=== PATIENT | male | born 1975 | race Caucasian/White ===

== ENCOUNTER 2017-06-12 08:25 | Emergency (ER) | payer SELFPAY ==
[2017-06-12 08:40] VITALS: BP 145/88
--- NOTE | 2017-06-12 09:31 | RAD ---
Indication: Back injury. 5 views of the lumbar spine demonstrate vertebral bodies to be normal in height. Disc spaces all well-preserved. Pedicles appear intact. IMPRESSION: No fracture of the lumbar spine is noted.
--- NOTE | 2017-06-12 10:04 | UC ---
Matt Wallis Jason, [facility] on 06/12/17 at 0931 . Back Pain HPI - HPI Summary HPI Summary: In Room: This patient is a 41 year old M presenting to [facility] with a chief complaint of sharp back pain since 3 days ago. The patient states that he slipped on ice at work and is experiencing bilateral lower back pain that has not improved with otc medication. The patient rates the pain 6/10 in severity. Symptoms aggravated by standing and sitting. Symptoms alleviated by lying down. Patient denies BM changes, urinary sx, and leg weakness, nausea, vomiting, and diarrhea. The patient includes that he has only been the hospital overnight during tonsil removal. MD note: VSS, temp 99.0, elevated BP 145/88. pulse ox: 99. 6/10 lumbar pain, non -smoker. Visit history: back injury and lower back pain noted. Nurses note: Pt states he slipped at work 06/09/17 and hurt bilateral low back. Pt states pain has persisted and hasn't improved with otc meds. - History of Current Complaint Chief Complaint: UCBackPain Stated Complaint: LOWER BACK INJURY Time Seen by Provider: 06/12/17 08:53 Hx Obtained From: Patient Onset/Duration: Sudden Onset, Gradual Onset, Lasting Days - scince 3 days ago, Still Present Pain Intensity: 6 Pain Scale Used: 0-10 Numeric Character: Sharp Aggravating Factor(s): Other - standing and sitting Alleviating Factor(s): Other - laying down Associated Signs And Symptoms: Positive: Other - Bilateral lower back pain. Patient denies BM changes, urinary sx, leg weakness, nausea, vomiting, and diarrhea. - Allergies/Home Medications Allergies/Adverse Reactions: Allergies Allergy/AdvReac Type Severity Reaction Status Date / Time Penicillins [PCN] Allergy Intermediate Hives Verified 06/12/17 08:40 Home Medications: Home Medications Ibuprofen [Advil] 1,200 mg PO ONCE PRN 06/12/17 [History Confirmed 06/12/17] PMH/Surg Hx/FS Hx/Imm Hx Previously Healthy: Yes Endocrine History: Other - negative DM Other Endocrine History: negative DM Respiratory History: Other - negative asthma Other Respiratory History: negative asthma - Surgical History Surgical History: Yes Surgery Procedure, Year, and Place: T & A - Family History Known Family History: Negative: Cardiac Disease, Hypertension, Diabetes - Social History Occupation: Employed Full-time Alcohol Use: Rare Substance Use Type: Marijuana Substance Use Comment - Amount & Last Used: daily Smoking Status (MU): Never Smoked Tobacco Household Exposure Type: Cigarettes - Immunization History Most Recent Influenza Vaccination: NOT UTD Review of Systems All Other Systems Reviewed And Are Negative: Yes - Comments Additional Review of Systems Comments: A 12 point review of systems was completed and significantly positive for: ~ Bilateral lower back pain .Patient denies BM changes, urinary sx, and leg weakness, nausea, vomiting, and ~The remainder of the review was negative except as stated above in the HPI. Physical Exam Triage Information Reviewed: Yes Vital Signs: Initial Vital Signs Temp 99.0 F 06/12/17 08:37 Pulse 89 06/12/17 08:37 Resp 18 06/12/17 08:37 BP 145/88 06/12/17 08:37 Pulse Ox 99 06/12/17 08:37 - Additional Comments The patient is well-nourished in no acute distress and in no acute pain. The skin is warm and dry and skin color reflects adequate perfusion. HEENT: The head is normocephalic and atraumatic. The pupils are equal and reactive. The conjunctivae are clear and without drainage. Nares are patent and without drainage. Mouth reveals moist mucous membranes and the throat is without erythema and exudate. The external ears are intact. The ear canals are patent and without drainage. The tympanic membranes are intact. Neck is supple with full range of motion and non-tender. There are no carotid bruits. ~There is no neck vein distension. Respiratory: Chest is non-tender. Lungs are clear to auscultation and breath sounds are symmetrical and equal. Cardiovascular: Heart is regular rate and rhythm. There is no murmur or rub auscultated. There is no peripheral edema and pulses are symmetrical and equal. Abdomen: The abdomen is soft and non-tender. There are normal bowel sounds heard in all four quadrants and there is no organomegaly palpated. Musculoskeletal: Extremities are non-tender with full range of motion. There is good capillary refill. There is no peripheral edema or calf tenderness elicited. NO TENDERNESS ALONG THE THORACIC OR LUMBAR SPINE. MAXIMUM PAIN ACROSS LUMBAR MUSCLE AREA WITH FLEXION Neurological: Patient is alert and oriented to person, place and time. The patient has symmetrical motor strength in all four extremities. Cranial nerves are grossly intact. Deep tendon reflexes are symmetrical and equal in all four extremities. Psychiatric: The patient has an appropriate affect and does not exhibit any anxiety or depression Diagnostics - Radiology LUMBAR SPINE X-RAY Radiology Interpretation Completed By: Radiologist - No fracture of the lumbar spine is noted. ED physician has reviewed this radiology report. Back Pain Course/Dx - Course Course Of Treatment: The patient is a 41 year old with acute lumbar pain secondary to movement injury. LUMBAR SPINE X-RAY reveals no fracture of the lumbar spine is noted. Medications have been included in the original chart and reviewed. Elevated blood pressure without diagnosis of hypertension. Patient referred to PCP within 1 day-4 wks for follow-up on BP. I discussed with the patient muscle strain, restricted activity, and treatment. He has voiced understanding. - Differential Dx/Diagnosis Differential Diagnosis/HQI/PQRI: Other - lumbar fracture, nerve injury, muscle strain Provider Diagnoses: acute lumbar strain Discharge - Discharge Plan Condition: Stable Disposition: HOME Prescriptions: Cyclobenzaprine TAB* [Flexeril TAB*] 10 mg PO BID #10 tab MDD 2 Patient Education Materials: Acute Low Back Pain (ED) Forms: *Work Release Referrals: No Primary Care Phys,NOPCP [Primary Care Provider] - Additional Instructions: Thank you for helping us improve patient care by filling out the My Point Survey. WE DISCUSSED: 1. Your x ray was Normal. You have injured the muscles of your low back. This will take 5-14 days to get completely better. 2. Warm moist heat in the morning; ice for acute pain when you are working. 3. Ibuprofen 600mg (3 pills) and acetaminophen 500 mg taken at the same time, up to four times a day would be good for both pain and calming down the inflammation. This may irritate your stomach. Take an antacid if it does. If you need to do this for more than a week because of pain, check with your doctor. 4. For sleep, Benadryl may help in the evening. Also, you have a muscle relaxant, Flexeril, you can take. 5. I have given you a work note. Your blood pressure reading today was 145/88, indicating HYPERTENSION/ PREHYPERTENSION. Follow-up with your primary care provider within 4 weeks for blood pressure readings and further evaluation. Establish with a new primary care provider and follow-up within 4 weeks for blood pressure readings and further evaluation. If you cant find a provider, try to check your blood pressure on your own and see if its above 120/80. If so , follow up for further evaluation and treatment. PLEASE SEEK CARE AT THE EMERGENCY DEPARTMENT IF SYMPTOMS WORSEN OR IF NEW SYMPTOMS DEVELOP. FOLLOW UP WITH YOUR PRIMARY CARE PHYSICIAN. The documentation as recorded by the Matt larson Jason accurately reflects the service I personally performed and the decisions made by me, Randal Negron MD.
== END 2017-06-12 10:06 | disposition home or self-care (01) ==
LOC: UCEAST 08:25
DX: S39.012A Strain of muscle, fascia and tendon of lower back, initial encounter (principal); W18.49XA Other slipping, tripping and stumbling without falling, initial encounter; Y93.9 Activity, unspecified; Y92.9 Unspecified place or not applicable; Y99.0 Civilian activity done for income or pay; Z88.0 Allergy status to penicillin; F12.90 Cannabis use, unspecified, uncomplicated; Z77.22 Contact with and (suspected) exposure to environmental tobacco smoke (acute) (chronic)
CPT/HCPCS: 72110; 99212; G0463

== ENCOUNTER 2018-08-12 09:13 | Emergency (ER) | payer SELFPAY ==
[2018-08-12 09:24] VITALS: BP 144/92
--- NOTE | 2018-08-12 10:37 | UC ---
Back Pain HPI - History of Current Complaint Chief Complaint: UCBackPain Stated Complaint: BACK PAIN Time Seen by Provider: 08/12/18 10:08 Hx Obtained From: Patient Pain Intensity: 9 - Allergies/Home Medications Allergies/Adverse Reactions: Allergies Allergy/AdvReac Type Severity Reaction Status Date / Time Penicillins Allergy Rash Verified 08/12/18 09:25 PMH/Surg Hx/FS Hx/Imm Hx - Surgical History Surgical History: Yes Surgery Procedure, Year, and Place: T & A - Family History Known Family History: Negative: Cardiac Disease, Hypertension, Diabetes - Social History Alcohol Use: Rare Substance Use Type: Marijuana Substance Use Comment - Amount & Last Used: daily Smoking Status (MU): Never Smoked Tobacco Household Exposure Type: Cigarettes - Immunization History Most Recent Influenza Vaccination: NOT UTD Physical Exam Vital Signs: Initial Vital Signs Temp 98 F 08/12/18 09:17 Pulse 80 08/12/18 09:17 Resp 17 08/12/18 09:17 BP 144/92 08/12/18 09:17 Pulse Ox 99 08/12/18 09:17 Discharge - Sign-Out/Discharge Documenting (check all that apply): Patient Departure - d/C home All imaging exams completed and their final reports reviewed: Yes - Discharge Plan Condition: Stable Disposition: HOME Prescriptions: Cyclobenzaprine TAB* [Flexeril 10 MG TAB*] 10 mg PO TID PRN #21 tab PRN Reason: Spasms - Back methylPREDNISolone [Medrol Dosepak 4 MG*] 4 mg PO .SEE DEBORAH INSTRUCTION #1 deborah Naproxen TAB* [Naprosyn 250 mg TAB*] 500 mg PO BID PRN #30 tab PRN Reason: Pain Patient Education Materials: Low Back Strain (ED), Degenerative Disc Disease ( ED) Forms: *Work Release Referrals: [facility] PHYSICIAN REFERRAL [Outside] - 3 Days Nisha Gomez Ae, RN [Registered Nurse] - 1 Week Additional Instructions: 1- Please take Naproxen PO as directed after meals for pain. Medrol dose deborah as directed to alleviate symptoms 2- Take Flexeril PO as directed for muscle spasm. Please do not drive while taking the medication. 3- Avoid strenuous exercise or heavy lifting. Wear a back support to alleviate symptoms 4- Please call Spinal Nurse Navigator: Dora Gomez: [phone] for further management of your Degenerative disc disease and herniated discs. 5- Your BP is elevated today. please decrease salt in your diet, monitor BP and if it continues to be elevated please f/u with your PCP for further management. - Billing Disposition and Condition Condition: STABLE Disposition: Home
== END 2018-08-12 11:56 | disposition home or self-care (01) ==
LOC: UCEAST 09:13
DX: M54.5 Low back pain (principal); Z88.0 Allergy status to penicillin; Z77.22 Contact with and (suspected) exposure to environmental tobacco smoke (acute) (chronic)
CPT/HCPCS: 72110; 99212; G0463

== ENCOUNTER 2019-10-14 11:07 | Emergency (ER) | payer BC ==
[2019-10-14 11:34] VITALS: BP 141/93
--- NOTE | 2019-10-14 11:34 | UC ---
Back Pain HPI - HPI Summary HPI Summary: CHIEF COMPLAINT: HPI: This is a healthy 44-year-old male with a complaint of a one-week history of left low back pain. He states that the pain is moderate, rating in his left low back and travels down his buttocks and into the left calf area. The pain began with an aching in the left calf the patient denies shortness of breath, history of DVT or blood clots. Pain is worse with driving or sitting up after lying down. It is also worse with bending but is alleviated somewhat with walking. Feels like a cramp. The patient has no complaints of urinary rectal problems. Patient also has a tick bite probably from his dog. He's not sure when it first happened. It's in his left upper arm. VITAL SIGNS REVIEWED. Within normal limits unless noted here. 141/93 NURSES NOTE REVIEWED. " Pt reports left sciatic nerve was irritated and now cant sleep. Also has a tick in arm " - History of Current Complaint Stated Complaint: LEFT LEG PAIN,TICK BITE Time Seen by Provider: 10/14/19 11:15 Hx Obtained From: Patient - Allergies/Home Medications Allergies/Adverse Reactions: Allergies Allergy/AdvReac Type Severity Reaction Status Date / Time Penicillins Allergy Rash Verified 10/14/19 11:32 Home Medications: Home Medications Ibuprofen [Advil Liqui-Gels] 1,200 mg PO ONCE PRN 06/12/17 [History Confirmed ] Cyclobenzaprine TAB* [Flexeril TAB*] 10 mg PO BID #20 tab MDD 2 10/14/19 [Rx] PMH/Surg Hx/FS Hx/Imm Hx - Additional Past Medical History Additional PMH: PAST MEDICAL HISTORY- noncontributory to the present complaint with the exception of sciatica one year ago. Nurse's past medical history, family history and social history reviewed. CHRONIC & RECURRENT HEALTH PROBLEM LIST REVIEWED. VISIT HISTORY REVIEWED. MEDICATIONS & ALLERGIES REVIEWED. Allergic to penicillin. HYPERTENSION HISTORY REVIEWED. No history of hypertension. Blood pressure today is 141/93. FAMILY HISTORY: Positive for: diabetes SOCIAL HISTORY: Smoking: no tobacco; smokes marijuana. 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 Previously Healthy: Yes - Surgical History Surgical History: Yes Surgery Procedure, Year, and Place: T & A - Family History Known Family History: Positive: Diabetes Negative: Cardiac Disease, Hypertension - Social History Alcohol Use: Rare Substance Use Type: Marijuana Substance Use Comment - Amount & Last Used: daily Smoking Status (MU): Never Smoked Tobacco Household Exposure Type: Cigarettes - Immunization History Most Recent Influenza Vaccination: NOT UTD Review of Systems All Other Systems Reviewed And Are Negative: Yes Constitutional: Positive: Negative Skin: Positive: Negative Respiratory: Positive: Negative Cardiovascular: Positive: Negative Gastrointestinal: Positive: Negative Motor: Positive: Negative Neurovascular: Negative: Decreased Sensation, Decreased Pulses Musculoskeletal: Positive: Myalgia - Left lower extremity, Other: - left arm, tick bite. Negative: Edema Neurological/Mental Status: Positive: Negative Is Patient Immunocompromised?: No Physical Exam - Summary Physical Exam Summary: Appearance: The patient is well-appearing, is well-nourished, and is in moderate discomfort. Eyes: Conjunctiva are clear. Pupils are equal and reactive to light and accommodation. Extraocular muscle movement is intact. ENT: The hearing is grossly normal, the pharynx is normal, and the TMs are normal. There is no muffled or hoarse voice. No stridor. Neck: The neck is supple and there is no lymphadenopathy. Respiratory: The chest is non-tender to palpation and without crepitus. The lungs are clear, there are normal breath sounds, and there is no respiratory distress. No wheezes, rales or rhonchi. Cardiovascular: Heart sounds reveal a regular rate and rhythm. There are no clicks, rubs or murmurs. There are no carotid bruits. Circulation is grossly intact. Abdomen: The abdomen is soft and nontender. Bowel sounds are present and within normal limits. There is no gross organomegaly. No point tenderness at McBurney s point. No CVA tenderness. Musculoskeletal: Strength is intact. The patient moves all extremities. Neurological: The patient is alert. Motor and sensory are examination grossly intact. Speech is normal. No swelling of left calf or pain with palpation. No thrombophlebitis. Discomfort left buttocks. Psychological: The patient displays age appropriate behavior, and is conversant. GCS=15. Skin: Negative for rashes. Left upper arm: head of tick in bite site; discussed with patient; I will not remove. Localized surrounding reactive erythema. No cellulitis or lymphangitis. Triage Information Reviewed: Yes Vital Signs Reviewed: Yes Back Pain Course/Dx - Course Course Of Treatment: This is a healthy 44-year-old male with a complaint of a one-week history of left low back pain. He denies chest pain, abdominal pain, problems with urination or flank pain. He states that the pain is moderate, rating in his left low back and travels down his buttocks and into the left calf area. The pain began with an aching in the left calf the patient denies shortness of breath, history of DVT or blood clots. Pain is worse with driving or sitting up after lying down. It is also worse with bending but is alleviated somewhat with walking. Feels like a cramp. The patient has no complaints of urinary rectal problems. A second complaint is a partially removed tick on his left arm. Physical examination shows no left lower extremity weakness or numbness. Tender to palpation left buttocks. Increased discomfort from bending over. Left arm: tick bite site, head remains, surrounding erythema without extension. The patient will clean the bite site morning and night with warm water and soap and place antibiotic ointment on it. I have given the patient 200 mg of doxycycline for Lyme prophylaxis. Patient knows to follow up immediately for new symptoms or fever. I have given the patient information about Lyme disease. - Differential Dx/Diagnosis Differential Diagnosis/HQI/PQRI: Compressive Cord Syndrome - Sciatica, Herniated Disc, Strain, Sprain, Other - Tick bite Provider Diagnosis: Sciatic leg pain, Tick bite Discharge ED - Sign-Out/Discharge Documenting (check all that apply): Patient Departure All imaging exams completed and their final reports reviewed: No Studies - Discharge Plan Condition: Stable Disposition: HOME Prescriptions: Cyclobenzaprine TAB* [Flexeril TAB*] 10 mg PO BID #20 tab MDD 2 Patient Education Materials: Tick Bite (ED), Sciatica (ED) Referrals: No Primary Care Phys,NOPCP [Primary Care Provider] - Additional Instructions: WE DISCUSSED: You probably have sciatica. You also have a small piece of the tick left in your left arm. I have given you antibiotic to prevent Lyme disease. I have not taken out the remainder of the tick that is in your arm. The tick head is still embedded and will come out. This has caused redness just around the tick site because the foreign body irritates the skin. However, the redness should not spread, or swell or get more painful. You should not develop a rash that looks like a target. Recheck if you see or feel any of these symptoms. Also, recheck for any increased pain, disability or numbness in your left leg. Your history and physical examination is most consistent with sciatica, a pressure on the nerves coming out of your spine and going down her left leg. He also have a tick bite and I treated this and given you and antibiotic to prevent Lyme disease. Watch the tick site and make sure it doesn't get red, hot , swollen or develop a target type rash. If this happens, make sure to come back and be treated. PLEASE SEEK CARE AT THE EMERGENCY DEPARTMENT IF SYMPTOMS WORSEN OR IF NEW SYMPTOMS DEVELOP. FOLLOW UP WITH YOUR PRIMARY CARE PHYSICIAN IF CONDITION CONTINUES BEYOND 3 DAYS WITHOUT IMPROVEMENT. YOUR DIAGNOSIS IS: Sciatica left leg; tick bite, Lyme prophylaxis given. YOUR PRESCRIPTION RECOMMENDATION IS: Flexeril, one pill up to 3 times a day for 5-7 days. Hypertension Discharge Instructions: Your blood pressure reading today was 141/93 , indicating hypertension. Follow- up with your primary care provider within 4 weeks for blood pressure check and appropriate recommendations and treatment, as needed. For pain: Ibuprofen (Motrin and other brand names) 400-600mg PLUS acetaminophen (Tylenol and other brand names) 500mg - 1000mg every 8 hours. Maximum is 3 doses a day. If this dosage is required for more than 5 days, you should re-check with your doctor. The combination of these two over-the- counter medications can be more effective than each one taken alone. Please check with the pharmacist if you have questions about your allergies to these medications or if you have any chronic conditions that might be affected by either Tylenol or Ibuprofen. You can also take Benadryl to help you sleep. Don 't take this at the same time as the Flexeril. For tick bite: warm moist soaks to the area for 10 minutes, 3 times a day for 7- 10 days. - Billing Disposition and Condition Condition: STABLE Disposition: Home
[2019-10-14] MEDS ORDERED: DOXYcycline CAP(*) 100 MG PO ONE (11:46)
== END 2019-10-14 12:10 | disposition home or self-care (01) ==
LOC: UCEAST 11:07
DX: M54.42 Lumbago with sciatica, left side (principal); S40.862A Insect bite (nonvenomous) of left upper arm, initial encounter; W57.XXXA Bitten or stung by nonvenomous insect and other nonvenomous arthropods, initial encounter; Y92.9 Unspecified place or not applicable; Z88.0 Allergy status to penicillin
CPT/HCPCS: 99212; A9270-GY; G0463